=== PATIENT | male | born 1985 | race Two or more races ===

== ENCOUNTER 2025-04-28 14:59 | Emergency (ER) | payer OTHER ==
[~2025-04-28] VITALS: Ht 172.7 cm; Wt 108.9 kg
[2025-04-28] MEDS ORDERED: ACETAMINOPHEN 500 MG GEL..CAP PO ONE (16:30)
[2025-04-28] MEDS ORDERED: BENZONATATE 100 MG CAPSULE PO ONE (16:30)
[2025-04-28] MEDS ORDERED: GUAIFENESIN 200 MG/10 ML BLIST.PACK PO ONE (16:30)
[2025-04-28 17:09] LABS: BASO % 0.2 % (0.1-1.2); EOS # 0.13 (0.04-0.54); EOS % 2.3 % (0.7-7.0); LYMPH # 2.03 (1.18-3.74); LYMPH % 35.9 % (19.3-53.1); MEAN PLATELET VOLUME 10.00 fl (9.4-12.4); MONO # 0.73 (0.24-0.82); NEUT # 2.74 (1.56-6.13); NEUT % 48.5 % (34.0-71.1); RED CELL DISTRIBUTION WIDTH 12.4 % (11.6-14.4)
[2025-04-28 17:11] LABS: MONO % 12.9 % (4.7-12.5)
[2025-04-28 18:00] LABS: COVID-19 AG POSITIVE (NEGATIVE)
== END 2025-04-29 18:24 | disposition home or self-care (01) ==
LOC: ER 14:59
PROVIDERS: General Practice
DX: U07.1 COVID-19 (principal)

== ENCOUNTER 2025-05-18 18:22 | Emergency (ER) | payer OTHER ==
[~2025-05-18] VITALS: Ht 172.7 cm; Wt 114.3 kg
[2025-05-18 19:49] LABS: BASO % 0.5 % (0.1-1.2); EOS # 0.09 (0.04-0.54); EOS % 1.2 % (0.7-7.0); LYMPH # 2.70 (1.18-3.74); LYMPH % 34.7 % (19.3-53.1); MEAN PLATELET VOLUME 10.00 fl (9.4-12.4); MONO # 0.62 (0.24-0.82); MONO % 8.0 % (4.7-12.5); NEUT # 4.32 (1.56-6.13); NEUT % 55.5 % (34.0-71.1); RED CELL DISTRIBUTION WIDTH 12.2 % (11.6-14.4)
[2025-05-18 20:21] LABS: ALT/SGPT 60.0 U/L (12-78); AST/SGOT 30.0 U/L (15-37); BILIRUBIN TOTAL 1.68 mg/dL (0.3-1.2); BUN CREA RATIO 17.0 (7.0-25.0); CREATININE SERUM 0.89 mg/dL (0.70-1.30); GFR 94.67; GLOBULINA 3.2 G/DL (2.4-3.5); GLUCOSE FASTING 97.0 mg/dL (65-100); OSMOLALITY SERUM 280.0 MOSM/KG (275-295)
[2025-05-18 20:33] LABS: URINE APPEARANCE Clear; URINE BILIRRUBIN Negative (NEGATIVE); URINE BLOOD Negative; URINE COLOR Yellow; URINE GLUCOSE Negative (NEGATIVE); URINE KETONE Negative (NEGATIVE); URINE LEUKOCYTE Negative; URINE NITRATE Negative; URINE PROTEIN Negative (NEGATIVE); URINE UROBILINOGEN 0.2 E.U./dl
[2025-05-18 21:02] LABS: URINE BACTERIA 1.2 uL (0.0-1933); URINE CAST 0.00 uL (0.0-1.40); URINE EPITHELIAL CELLS 0.3 uL (0.0-38.8); URINE RBC 0.2 uL (0.0-20.8); URINE WBC 0.1 uL (0.0-23.2)
[2025-05-18] MEDS ORDERED: KETOROLAC TROMETHAMINE 30 MG VIAL IM STA (21:07)
== END 2025-05-18 21:28 | disposition home or self-care (01) ==
LOC: ER 18:45
PROVIDERS: General Practice
DX: M54.50 Low back pain, unspecified (principal); J02.8 Acute pharyngitis due to other specified organisms

== ENCOUNTER 2025-07-04 12:02 | Emergency (ER) | payer OTHER ==
[~2025-07-04] VITALS: Ht 172.7 cm; Wt 108.9 kg
[2025-07-04] MEDS ORDERED: KETOROLAC TROMETHAMINE 60 MG VIAL IM ONE ×2 (14:00→14:10)
[2025-07-04] MEDS ORDERED: DEXAMETHASONE SODIUM PHOSPHATE 4 MG/ML VIAL IM ONE (14:00)
[2025-07-04] MEDS ORDERED: NAPR500T14 PO (16:45)
== END 2025-07-04 17:13 | disposition home or self-care (01) ==
LOC: ER 12:02
DX: M79.10 Myalgia, unspecified site (principal)

== ENCOUNTER 2025-07-24 19:47 | Emergency (ER) | payer OTHER ==
[~2025-07-24] VITALS: Ht 172.7 cm; Wt 108.0 kg
[~2025-07-24 19:47] MED LIST: NAPR500T14 PO
[2025-07-24] MEDS ORDERED: ORPHENADRINE CITRATE 30 MG/ML AMPUL IM ONE (20:45)
[2025-07-24] MEDS ORDERED: KETOROLAC TROMETHAMINE 30 MG VIAL IM ONE (20:45)
[2025-07-24] MEDS ORDERED: DEXAMETHASONE SODIUM PHOSPHATE 4 MG/ML VIAL IM ONE (20:45)
[2025-07-24] MEDS ORDERED: KETOROLAC TROME10 MG PO (22:25)
[2025-07-24] MEDS ORDERED: PEPCID AC20 MG PO (22:25)
[2025-07-24] MEDS ORDERED: MEDROLPACK PO (22:25)
[2025-07-24] MEDS ORDERED: NORFLEX100MG PO (22:25)
== END 2025-07-24 22:36 | disposition home or self-care (01) ==
LOC: ER 19:48
DX: S89.81XA Other specified injuries of right lower leg, initial encounter (principal); S99.811A Other specified injuries of right ankle, initial encounter; W10.8XXA Fall (on) (from) other stairs and steps, initial encounter; Y93.89 Activity, other specified; Y92.69 Other specified industrial and construction area as the place of occurrence of the external cause; Y99.8 Other external cause status; M25.561 Pain in right knee; M25.471 Effusion, right ankle